=== PATIENT | female | born 1990 | race Hispanic/Latino ===

== ENCOUNTER 2017-04-22 09:17 | Outpatient (CLI) | payer SELFPAY ==
[~2017-04-22] VITALS: Ht 178.1 cm; Wt 134.7 kg
[2017-04-22 09:25] VITALS: BP 132/69
[2017-04-22] MEDS ORDERED: PREN-8 PO (09:36)
[2017-04-22 09:51] LABS: BILIRUBIN,URINE NEGATIVE (NEGATIVE); KETONES,URINE NEGATIVE (NEGATIVE); LEUKOCYTE ESTERASE ,URINE 3+ (NEGATIVE); NITRITE,URINE NEGATIVE (NEGATIVE); PH,URINE 7 (5-9); PROTEIN,URINE 1+ (NEGATIVE); UROBILINOGEN,URINE NORMAL (NORMAL)
[2017-04-22 09:59] LABS: SQUAMOUS EPITHELIAL CELL,UR >50 /HPF; WBC,URINE 25-50 /HPF
[2017-04-22] MEDS ORDERED: METR500T PO (10:38)
--- NOTE | 2017-04-23 12:58 | Physician Query-Final Dx ---
LEANDRA KNAPP 04/23/17 1258: Clinic Account Progress/Dx Physician Query: Please give diagnosis Date of Service Apr 22, 2017 at 09:17 SRUTHI HENDERSON DO 04/23/17 1753: Clinic Account Progress/Dx DIAGNOSIS: Diagnosis G1 P 0 @ 36 weeks Vaginal discharge BV LEANDRA KNAPP Apr 23, 2017 12:58 SRUTHI HENDERSON DO Apr 23, 2017 17:53
== END 2017-04-22 11:00 | disposition home or self-care (01) ==
LOC: WSo 09:17 → LDRP 09:18 → WSo 11:00
PROVIDERS: ATTEND Obstetrics & Gynecology
DX: N76.0 Acute vaginitis; Z3A.36 36 weeks gestation of pregnancy; O99.89 Other specified diseases and conditions complicating pregnancy, childbirth and the puerperium
CPT/HCPCS: 81000; 87088; 87210; 99214